=== PATIENT | male | born 1950 | race Caucasian/White ===

== ENCOUNTER 2019-04-24 07:05 | Outpatient (CLI) | payer MEDICARE, OTHER ==
[2019-04-24 12:29] LABS: BASOPHILS # (AUTO) 0.1 10^3/uL (0.0-0.1); EOSINOPHILS # (AUTO) 0.2 10^3/uL (0.0-0.7); EOSINOPHILS % (AUTO) 3.9 %; HGB - HEMOGLOBIN 14.5 g/dL (14.0-18.0); LYMPHOCYTES # (AUTO) 1.1 10^3/uL (1.5-3.5); LYMPHOCYTES % (AUTO) 20.7 %; MEAN CORPUSCULAR HEMOGLOBIN 30.5 pg (27.0-31.0); MEAN CORPUSCULAR VOLUME 92.4 fL (80.0-94.0); MEAN PLATELET VOLUME 10.2 fL (7.4-11.4); MONOCYTES # (AUTO) 0.6 10^3/uL (0.0-1.0); MONOCYTES % (AUTO) 10.8 %; NEUTROPHILS # (AUTO) 3.2 10^3/uL (1.5-6.6); NEUTROPHILS % (AUTO) 63.4 %; PLT - PLATELET COUNT 236 10^3/uL (130-450); RED BLOOD COUNT 4.75 10^6/uL (4.70-6.10); RED CELL DISTRIBUTION WIDTH 12.2 % (12.0-15.0); WHITE BLOOD COUNT 5.1 x10^3/uL (4.8-10.8)
[2019-04-24 12:56] LABS: PSA FREE 0.944 ng/mL (0.16-2.81)
[2019-04-24 12:57] LABS: PSA TOTAL 6.02 ng/mL (0.000-2.000)
[2019-04-24 13:32] LABS: FREE T4 (FREE THYROXINE) 0.93 ng/dL (0.58-1.64)
[2019-04-24 14:20] LABS: ALBUMIN 4.1 g/dL (3.2-5.5); ALBUMIN/GLOBULIN RATIO 1.5 (1.0-2.2); ALKALINE PHOSPHATASE 49 IU/L (42-121); ALT ALANINE AMINOTRANSFERASE 29 IU/L (10-60); AST ASPARTATE AMINOTRANSFERASE 30 IU/L (10-42); BUN - BLOOD UREA NITROGEN 19 mg/dL (6-20); CALCIUM 9.3 mg/dL (8.5-10.3); CARBON DIOXIDE - CO2 26 mmol/L (21-32); CHLORIDE 101 mmol/L (101-111); CHOL/HDL RATIO 3.7 (<5.0); CHOLESTEROL 236 mg/dL; CREATININE 0.8 mg/dL (0.6-1.2); GFR - MDRD 96 (>89); GLUCOSE 92 mg/dL (70-100); HDL CHOLESTEROL 64 mg/dL; LDL CHOLESTEROL,CALCULATED 155 mg/dL; LDL/HDL RATIO 2.4 (<3.6); SODIUM 136 mmol/L (135-145); TOTAL PROTEIN 6.9 g/dL (6.7-8.2); VLDL CHOLESTEROL 17 mg/dL
== END 2019-04-24 07:06 | disposition home or self-care (01) ==
LOC: LAB.WCP 07:05
PROVIDERS: ATTEND Family Medicine
DX: E03.9 Hypothyroidism, unspecified (principal); R97.20 Elevated prostate specific antigen [PSA]; E78.5 Hyperlipidemia, unspecified
CPT/HCPCS: 36415; 80053; 80061; 83721; 84153; 84154; 84439; 84443; 85025

== ENCOUNTER 2019-07-09 06:16 | Day surgery (SDC) | payer MEDICARE, OTHER ==
[2019-07-09] MEDS ORDERED: MIDAZOLAM 2 MG/2 ML VIAL IVP ONE (06:17)
[2019-07-09] MEDS ORDERED: fentaNYL 250 MCG/5 ML VIAL IVP ONE (06:17)
[2019-07-09] MEDS ORDERED: LACTATED RINGERS 1,000 ML IV ONE (07:02)
[2019-07-09 08:48] VITALS: BP 105/62
== END 2019-07-09 06:17 | disposition home or self-care (01) ==
LOC: SDS 06:16
PROVIDERS: ATTEND Surgery
PROC: 0DBP8ZZ Excision of Rectum, Via Natural or Artificial Opening Endoscopic (ICD-10-PCS; principal; 2019-07-09 07:30)
DX: Z12.11 Encounter for screening for malignant neoplasm of colon (principal); D12.8 Benign neoplasm of rectum; K57.30 Diverticulosis of large intestine without perforation or abscess without bleeding; K64.8 Other hemorrhoids; R12 Heartburn; K44.9 Diaphragmatic hernia without obstruction or gangrene; D68.9 Coagulation defect, unspecified; E03.9 Hypothyroidism, unspecified; E78.5 Hyperlipidemia, unspecified; I47.1 Supraventricular tachycardia; I87.2 Venous insufficiency (chronic) (peripheral); I87.8 Other specified disorders of veins; G89.29 Other chronic pain; M54.5 Low back pain; E66.3 Overweight; Z68.25 Body mass index [BMI] 25.0-25.9, adult; R97.20 Elevated prostate specific antigen [PSA]; M47.812 Spondylosis without myelopathy or radiculopathy, cervical region; F41.8 Other specified anxiety disorders; N40.0 Benign prostatic hyperplasia without lower urinary tract symptoms; Z87.891 Personal history of nicotine dependence; Z86.711 Personal history of pulmonary embolism; Z96.642 Presence of left artificial hip joint
CPT/HCPCS: 45380; J3010; J7120

== ENCOUNTER 2021-07-24 19:33 | Outpatient (CLI) | payer MEDICARE, OTHER ==
--- NOTE | 2021-07-24 23:12 | Ultrasound Report ---
PROCEDURE: Duplex Lwr Ext Arterial LT INDICATIONS: PVD, CHRONIC ULCER OF LEFT ANKLE TECHNIQUE: Color and pulse Doppler interrogation was performed of the left lower extremity arterial system, with image documentation. COMPARISON: None. FINDINGS: Common femoral artery: 86 cm/sec, with triphasic flow. Deep femoral artery: 57 cm/sec, with biphasic flow. Proximal superficial femoral artery: 91 cm/sec, with triphasic flow. Mid superficial femoral artery: 109 cm/sec, with triphasic flow. Distal superficial femoral artery: 81 cm/sec, with triphasic flow. Popliteal artery: 77 cm/sec, with triphasic flow. Posterior tibial artery: 482 cm/sec at the midportion, with monophasic flow. Anterior tibial artery/dorsalis pedis: 120/114 cm/sec, with monophasic/triphasic flow. [place]-scale imaging description: Scattered atherosclerotic plaque is noted. IMPRESSION: 70-99% stenosis of the mid posterior tibial artery. Reviewed by: Senthil Ramos MD on 07/24/2021 11:10 PM PDT Approved by: Senthil Ramos MD on 07/24/2021 11:10 PM PDT Station ID: [id number]
== END 2021-07-24 19:34 | disposition home or self-care (01) ==
LOC: DI 19:33
PROVIDERS: ATTEND Nurse Practitioner
DX: L97.322 Non-pressure chronic ulcer of left ankle with fat layer exposed (principal); I70.202 Unspecified atherosclerosis of native arteries of extremities, left leg